=== PATIENT | male | born 1950 | race Asian ===

== ENCOUNTER → 2025-06-01 | Outpatient (CLI) | payer MEDICARE, BC | LOC: M EKG 09:30 | PROVIDERS: ATTEND Ophthalmology | DX: Z01.818 Encounter for other preprocedural examination (principal) ==

== ENCOUNTER → 2025-06-03 | Outpatient (CLI) | payer MEDICARE, BC ==
[2025-06-03 07:44] LABS: PLATELET COUNT, AUTOMATED 181 10^3/uL (150-450)
[2025-06-03 08:17] LABS: PROSTATIC SPECIFIC AG MONITOR 3.0 NG/ML (< 4.00)
[2025-06-03 08:21] LABS: ALT/SGPT 24.0 U/L (7.0-40); AST/SGOT 24.0 U/L (<34); CALCIUM LEVEL 9.7 MG/DL (8.3-10.6); CARBON DIOXIDE LEVEL 28.0 MMOL/L (20-31); CHLORIDE LEVEL 109.0 MMOL/L (98-107); CHOLESTEROL LEVEL 146.0 MG/DL (<200); CHOLESTEROL RISK RATIO 2.75 (<5); CREATININE FOR GFR 1.0 MG/DL (0.70-1.30); GLOMERULAR FILTRATION RATE 79.0 (>42); LDL CHOLESTEROL 80.6 MG/DL (<100); NON-HDL-C 93.0 MG/DL; POTASSIUM SERUM 4.2 MMOL/L (3.5-5.1); SODIUM LEVEL 146.0 MMOL/L (136-145); TRIGLYCERIDES LEVEL 62.0 MG/DL (<150)
[2025-06-03 10:03] LABS: ESTIMATED AVERAGE GLUCOSE 114.0 MG/DL (60-110)
== END ==
LOC: M LAB 06:57
PROVIDERS: ATTEND Family Medicine
DX: Z01.818 Encounter for other preprocedural examination (principal); Z13.1 Encounter for screening for diabetes mellitus; Z13.6 Encounter for screening for cardiovascular disorders

== ENCOUNTER 2025-07-04 06:13 | Day surgery (SDC) | payer MEDICARE, BC ==
[~2025-07-04] VITALS: Ht 170.2 cm; Wt 62.8 kg
[~2025-07-04 06:13] MED LIST: BIMA01SOL OD; DORZ2SOL5
[2025-07-04] MEDS ORDERED: LIDOCAINE 2% 100 MG/5 ML SDV (FOR ANES.) As Ordered ONE (07:00)
[2025-07-04] MEDS ORDERED: MIDAZOLAM INJ 2 MG/2 ML VIAL As Ordered ONE (07:00)
[2025-07-04] MEDS ORDERED: ACETAMINOPHEN 1000MG/100ML IV BAG As Ordered ONE (07:00)
[2025-07-04] MEDS: LR 1,000 ML IV SCH ×2 (07:05→11:15)
[2025-07-04] MEDS: EPINEPHrine INJ 1 MG/ML 1ML AMP PN ONE (08:25)
[2025-07-04] MEDS ORDERED: dexAMETHasone 10 MG/1 ML VIAL PRES.FREE PN ONE (08:25)
[2025-07-04] MEDS ORDERED: LIDOCAINE 1% SDV 5 ML VIAL PN ONE (08:25)
[2025-07-04] MEDS ORDERED: MIDAZOLAM INJ 2 MG/2 ML VIAL IV PRN (08:25)
[2025-07-04] MEDS ORDERED: ROPIvacaine 0.5% 30ML VIAL PN ONE (08:25)
[2025-07-04] MEDS ORDERED: dexAMETHasone 4 MG/ML 1 ML VIAL As Ordered ONE (09:19)
[2025-07-04] MEDS: ceFAZolin SOD 2 GM IV ONCE IV ONE (09:39)
[2025-07-04] MEDS: VANCOMYCIN 1000MG/20ML VIAL As Ordered ONE (10:13)
[2025-07-04] MEDS ORDERED: ONDANSETRON 4MG 2ML VIAL IV PRN (11:15)
[2025-07-04] MEDS: HYDROMORPHONE HCL 0.5 MG/0.5 ML SYRINGE IV PRN (12:49)
[2025-07-04 18:30] VITALS: BP 132/67; TEMP 97.2; O2SAT 96
[2025-07-05] MEDS ORDERED: UNRESOLVED CLARIFICATION ENTRY XX SCH (00:01)
== END 2025-07-04 19:54 | disposition home or self-care (01) ==
LOC: M SDC 06:13
PROVIDERS: ATTEND Orthopaedic Surgery Hand Surgery
DX: S52.321A Displaced transverse fracture of shaft of right radius, initial encounter for closed fracture (principal); S52.601A Unspecified fracture of lower end of right ulna, initial encounter for closed fracture; W19.XXXA Unspecified fall, initial encounter; Y93.9 Activity, unspecified; Y92.9 Unspecified place or not applicable
CPT/HCPCS: 25575; 76000; C1713; J0131; J0665; J0688; J1100; J1171; J2250; J3010; J3373

== ENCOUNTER → 2025-07-17 | Outpatient (CLI) | payer MEDICARE, BC | LOC: M SOG 07:16 | PROVIDERS: ATTEND Physician Assistant | DX: S52.321A Displaced transverse fracture of shaft of right radius, initial encounter for closed fracture (principal); W18.30XA Fall on same level, unspecified, initial encounter; Y92.009 Unspecified place in unspecified non-institutional (private) residence as the place of occurrence of the external cause ==

== ENCOUNTER → 2025-08-14 | Outpatient (CLI) | payer MEDICARE, BC | LOC: M SOG 07:39 | PROVIDERS: ATTEND Physician Assistant | DX: S52.321D Displaced transverse fracture of shaft of right radius, subsequent encounter for closed fracture with routine healing (principal); W18.30XD Fall on same level, unspecified, subsequent encounter ==